=== PATIENT | female | born 1975 | race Caucasian/White ===

== ENCOUNTER → 2017-04-17 | Outpatient (CLI) | payer BC ==
[2017-04-17 16:36] LABS: Basophils # (A) 0.1 k/uL (0-0.2); Basophils % (A) 1 %; CH 30.4; CHCM 34.9; Eosinophils # (A) 0.2 k/uL (0-0.7); Eosinophils % (A) 3 %; HCT 40.8 % (34.0-46.0); HDW 2.79; Luc # (Auto) 0.17; Luc % (Auto) 3; Lymphocytes # (A) 1.9 k/uL (1.0-4.8); Lymphocytes % (A) 29 %; MCHC 34.3 g/dL (31.0-37.0); MCV 87.5 fL (80.0-100.0); Mean Platelet Volume 6.5; Monocytes # (A) 0.3 k/uL (0-1.0); Monocytes % (A) 5 %; Neutrophils # (A) 3.9 k/uL (1.3-7.7); Neutrophils % (A) 60 %; RBC 4.67 m/uL (3.80-5.40); RDW 12.8 % (11.5-15.5); WBC 6.5 k/uL (3.8-10.6); WBC (Perox) 6.19
== END | disposition home or self-care (01) ==
LOC: LABPAT 16:02
PROVIDERS: ATTEND Obstetrics & Gynecology
DX: Z01.812 Encounter for preprocedural laboratory examination (principal)
CPT/HCPCS: 36415; 85025

== ENCOUNTER 2017-04-24 07:57 | Day surgery (SDC) | payer SELFPAY ==
[2017-04-18 12:45] VITALS: BMI 32.3
--- NOTE | 2017-04-23 14:10 | P.HPOB ---
History of Present Illness H&P Date: 04/23/17 Chief Complaint: Menorrhagia with regular cycle, family planning This is a 41-year-old female 2 para 2 who presents for dilation and curettage with hysteroscopy and NovaSure endometrial ablation along with laparoscopic bilateral tubal ligation with fulguration for family planning and menorrhagia with regular cycle. She has been on control pills to control her heavy menses for some years now, however her blood pressure has been increasing in her family doctor has recommended that she stopped control pills. Her menses are occurring every 28 days and lasting 4 days that she has spotting for a week to week and a half after her menses. Her current partner has had a vasectomy. She would however like a tubal ligation for permanent sterilization. Pelvic ultrasound showed uterus measuring 10.2 x 2.5 x 5.8 cm. Endometrial stripe thickness was 0.5 cm. Both ovaries were normal. Obstetrical history: . History of 2 vaginal deliveries. Gynecologic history: No history of sexually transmitted diseases. She is currently using oral contraceptives and her partner has had a vasectomy. Social history: She is . She works as a hairdresser. Review of Systems Constitutional: Denies chills, Denies fever Ears, nose, mouth and throat: Denies headache, Denies sore throat Cardiovascular: Denies chest pain, Denies shortness of breath Respiratory: Denies cough Gastrointestinal: Denies abdominal pain, Denies diarrhea, Denies nausea, Denies vomiting Genitourinary: Reports menorrhagia Menstruation: Reports menses 8 or > days, Reports period heavy Musculoskeletal: Denies myalgias Integumentary: Denies pruritus, Denies rash Neurological: Denies numbness, Denies weakness Psychiatric: Reports anxiety, Reports difficulty concentrating Past Medical History Past Medical History: Asthma, Hypertension, Thyroid Disorder Additional Past Medical History / Comment(s): MIGRAINE HEADACHE History of Any Multi-Drug Resistant Organisms: None Reported Past Surgical History: Adenoidectomy, Tonsillectomy Past Anesthesia/Blood Transfusion Reactions: Motion Sickness, Postoperative Nausea & Vomiting (PONV) Past Psychological History: Anxiety Smoking Status: Never smoker Past Alcohol Use History: Occasional Past Drug Use History: None Reported - Past Family History Mother Family Medical History: No Reported History Medications and Allergies Home Medications Medication Instructions Recorded Confirmed Type Hydrochlorothiazide 12.5 mg PO DAILY 04/18/17 04/18/17 History Lisdexamfetamine Dimesylate 10 mg PO DAILY 04/18/17 04/18/17 History [Vyvanse] Thyroid,Pork [Munford Thyroid] 90 mg PO DAILY 04/18/17 04/18/17 History Allergies Allergy/AdvReac Type Severity Reaction Status Date / Time codeine Allergy COMBATIVE Verified 04/18/17 12:24 Exam Osteopathic Statement: *. No significant issues noted on an osteopathic structural exam other than those noted in the History and Physical/Consult. HEENT: Within normal limits Heart: Regular rate and rhythm Lungs: Clear to auscultation bilaterally Abdomen: Soft, nontender Pelvic exam: Uterus is anteverted, nontender, with no adnexal masses palpated. Extremities: Negative Homans Assessment and Plan (1) Menorrhagia with regular cycle Status: Acute Code(s): N92.0 - EXCESSIVE AND FREQUENT MENSTRUATION WITH REGULAR CYCLE SNOMED Code(s): 128598984 (2) Family planning Status: Acute Code(s): Z30.09 - ENCOUNTER FOR OT GENERAL CNSL AND ADVICE ON CONTRACEPTION SNOMED Code(s): 967717911 Plan: Proceed with dilation and curettage with hysteroscopy and NovaSure endometrial ablation along with laparoscopic bilateral tubal ligation. I have discussed the risks, benefits, and alternative therapies for the above- mentioned procedure and for both sedation/anesthesia as well as necessary blood products administration, if indicated, as they pertain to this patient. The patient has indicated her understanding and acceptance of the risks and procedures discussed.
[~2017-04-24 07:57] MED LIST: Pre Op ABX Message 1 EACH MISC MISCELLANE ONE
[2017-04-24] MEDS: LACTATED RINGERS 1,000 ML IV SCH ×2 (08:16→11:31)
[2017-04-24] MEDS ORDERED: LIDOCAINE 1% 20 ML VIAL (10MG/ML) FOR IV START INTRADERMA ONE (08:17)
[2017-04-24 08:20] LABS: Glucose,Whole Blood 100 mg/dL (75-99)
[2017-04-24] MEDS ORDERED: ONDANSETRON 4 MG/2 ML VIAL IVP ONE ×2 (08:33→12:47)
[2017-04-24] MEDS ORDERED: DEXAMETHASONE SOD PHOS (MDV) 100 MG/10 ML VIAL IVP ONE (08:33)
[2017-04-24] MEDS ORDERED: SCOPOLAMINE 1.5MG/72HR PATCH TRANSDERM ONE (08:34)
[2017-04-24] MEDS ORDERED: MIDAZOLAM 2 MG/2 ML VIAL ONE (08:46)
[2017-04-24] MEDS ORDERED: fentaNYL (PF) 50 MCG/ML 2 ML AMP ONE (08:46)
[2017-04-24] MEDS ORDERED: PROPOFOL 10 MG/ML 20 ML VIAL IV ONE (08:46)
[2017-04-24] MEDS ORDERED: LIDOCAINE 1% INJ 10MG/ML (20 ML MDV) ONE (08:46)
[2017-04-24] MEDS ORDERED: SUCCINYLCHOLINE CHLORIDE 100 MG/5 ML SYR IV ONE (08:46)
[2017-04-24] MEDS ORDERED: KETOROLAC 30 MG/ML 1 ML VIAL ONE (08:46)
[2017-04-24] MEDS ORDERED: BUPIVACAINE (PF) 0.25% 30 ML VIAL SQ ONE ×2 (09:21)
--- NOTE | 2017-04-24 09:35 | P.OP ---
Date of Procedure: 04/24/17 Preoperative Diagnosis: Menorrhagia with regular cycle, family-planning Postoperative Diagnosis: Same Procedure(s) Performed: Dilation and curettage with hysteroscopy and NovaSure endometrial ablation Laparoscopic bilateral tubal ligation via fulguration Anesthesia: KOSTA Surgeon: Yuliana Goddard Estimated Blood Loss (ml): 10 Pathology: other (Endometrial curettings) Condition: stable Disposition: same day Indications for Procedure: This is a 41-year-old female 2 para 2 who presents for dilation and curettage with hysteroscopy and NovaSure endometrial ablation along with laparoscopic bilateral tubal ligation with fulguration for family planning and menorrhagia with regular cycle. She has been on control pills to control her heavy menses for some years now, however her blood pressure has been increasing in her family doctor has recommended that she stopped control pills. Her menses are occurring every 28 days and lasting 4 days that she has spotting for a week to week and a half after her menses. Her current partner has had a vasectomy. She would however like a tubal ligation for permanent sterilization. Pelvic ultrasound showed uterus measuring 10.2 x 2.5 x 5.8 cm. Endometrial stripe thickness was 0.5 cm. Both ovaries were normal. Operative Findings: Uterus is anteverted, with no adnexal masses palpated. Cervix is sounded to 4 cm and uterus is sounded to 9 cm. Upon hysteroscopy, a dyssynchronous endometrial pattern is noted. A minimal amount of endometrial curettings are obtained. Upon laparoscopy, uterus tubes and ovaries appeared normal. There was what appeared to be some small amount of endometriosis over the bladder area. Appendix was visualized and appeared normal. Description of Procedure: The patient is taken to the operating room. She is placed in the dorsal lithotomy position after general anesthesia was given. She is prepped and draped in the normal sterile fashion. Bladder is drained with a catheter and then removed. Pelvic exam is performed under anesthesia. Uterus is found to be anteverted with no adnexal masses. She is placed in slight Trendelenburg position. A right angle retractor is used to visualize the cervix. The anterior lip of the cervix is grasped with a single-tooth tenaculum. Cervix is sounded to 4 cm. Uterus is sounded to 9 cm. Cervix is gently dilated with Merlos dilators until a hysteroscope could be passed. Hysteroscopy is performed using normal saline. The above noted findings are noted. Next a polyp forceps is introduced. And a minimal amount of tissue was obtained. Next medium-sized size sharp curette was placed. A minimal to moderate amount of endometrial curettings were obtained. Next NovaSure array was inserted into the endometrial cavity. Length was set at 5 cm and width was determined to be 4 cm. Next cavity assessment was completed and passed on the first try. Next NovaSure array was fired at 110 W for 81 seconds. Next the array was removed, inspected and then discarded. Next the hysteroscope was reinserted. Uniform charring was noted. Pictures were taken. Hysteroscope was removed. A kroner uterine manipulator was then inserted and the balloon was inflated. Single- tooth tenaculum was removed from the anterior lip of the cervix. Minimal bleeding was noted. Gloves are changed and attention is turned to the abdomen. The infraumbilical fold was grasped in transverse fashion with 2 Allis clamps. A small transverse incision was made with a scalpel. A hemostat was used to carry the incision down to the underlying layer of fascia. A towel clip was placed above the umbilicus for retraction. A 11 mm disposable bladeless trocar was then inserted into the peritoneal cavity under direct visualization. Once inside, pneumoperitoneum was achieved with CO2 gas. The insert was removed and the camera was placed. Intraperitoneal placement was confirmed. No bleeding was noted. Next the patient was placed in Trendelenburg position. A small stab incision was made suprapubically and a 5 mm disposable bladeless trocar was inserted into the peritoneal cavity under direct visualization. Once inside pelvic contents were inspected. Next a bipolar Kleppinger instrument was placed through the inferior trocar and the midportion of each tube was brought away from other structures and completely fulgurated on approximate 2-3 cm segment of each tube. Excellent hemostasis was noted. A picture was taken. There was noted to be questionable endometriosis implants over the bladder area. No other evidence of endometriosis was noted. Pneumoperitoneum was released after the inferior trocar was removed under direct visualization. The upper trocar was then removed. The fascial incision was closed with 0 Vicryl suture in interrupted [id number] stitch. The skin incisions were then closed with 4-0 Vicryl suture in a subcuticular fashion. Incision sites were injected with quarter percent Marcaine. Approximately 4 mL were used. Next the kroner uterine manipulator was removed. Minimal bleeding was noted. All sponge and needle counts are correct. The patient is then taken to recovery room in stable condition.
[2017-04-24 09:45] VITALS: TEMP 96.9
[2017-04-24] MEDS: HYDROmorphone 1 MG/ML 1 ML SYRINGE IVP ONE ×4 (09:49→10:24)
[2017-04-24 10:59] VITALS: PULSE 75
[2017-04-24 12:20] VITALS: BP 119/66; RESP 18
== END 2017-04-24 13:51 | disposition home or self-care (01) ==
LOC: OR 07:57
PROVIDERS: ATTEND Obstetrics & Gynecology
DX: N92.0 Excessive and frequent menstruation with regular cycle (principal); Z30.2 Encounter for sterilization; I10 Essential (primary) hypertension; E07.9 Disorder of thyroid, unspecified; J45.909 Unspecified asthma, uncomplicated; F41.9 Anxiety disorder, unspecified; Z88.5 Allergy status to narcotic agent; Z79.899 Other long term (current) drug therapy
CPT/HCPCS: 58563; 58670; 81025; 88305; J2250; J2405; J2001; J3010; J1885; J1170; J1100; J0330; J2704

== ENCOUNTER → 2018-03-11 | Outpatient (CLI) | payer BC ==
[2018-03-11 17:40] LABS: Basophils # (A) 0.1 k/uL (0-0.2); Basophils % (A) 1 %; Eosinophils # (A) 0.3 k/uL (0-0.7); Eosinophils % (A) 3 %; HCT 40.6 % (34.0-46.0); HGB 13.5 gm/dL (11.4-16.0); Lymphocytes # (A) 2.4 k/uL (1.0-4.8); Lymphocytes % (A) 28 %; MCH 29.4 pg (25.0-35.0); MCHC 33.1 g/dL (31.0-37.0); MCV 88.7 fL (80.0-100.0); Mean Platelet Volume 6.4; Monocytes # (A) 0.4 k/uL (0-1.0); Monocytes % (A) 4 %; Neutrophils # (A) 5.3 k/uL (1.3-7.7); Neutrophils % (A) 62 %; Platelet Count 278 k/uL (150-450); RBC 4.58 m/uL (3.80-5.40); WBC 8.4 k/uL (3.8-10.6)
== END | disposition home or self-care (01) ==
LOC: LABPAT 17:20
PROVIDERS: ATTEND Obstetrics & Gynecology
DX: Z01.812 Encounter for preprocedural laboratory examination (principal)
CPT/HCPCS: 36415; 85025

== ENCOUNTER → 2018-03-22 | Day surgery (SDC) | payer BC ==
[2018-03-15 15:45] VITALS: BMI 29.8
--- NOTE | 2018-03-21 19:25 | P.HPOB ---
History of Present Illness H&P Date: 03/21/18 Chief Complaint: Recurrent LGSIL, positive high risk HPV This is a [id number] female 2 para 2 who presents for loop electrocautery excision procedure with colposcopy secondary to recurrent low- grade squamous intraepithelial lesion and positive high risk HPV. Her last Pap smear was performed 12/07/2017 and revealed low-grade Scriba subjective epithelial lesion of the cervix with positive high risk HPV. 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 She was treated with cryotherapy in 2017. Since this is recurrent and she is still showing positive high risk HPV, she would like definitive surgical treatment to treat this problem. Obstetrical history: . History of 2 vaginal deliveries. Gynecologic history: She does have a history of a tubal ligation and NovaSure ablation. She has no other history of sexual transmitted diseases. Her current partner also has has a vasectomy. Social history: She is . She works as a hairdresser. Review of Systems Constitutional: Denies chills, Denies fever Eyes: denies blurred vision, denies pain Ears, nose, mouth and throat: Denies headache, Denies sore throat Cardiovascular: Denies chest pain, Denies shortness of breath Respiratory: Denies cough Gastrointestinal: Denies abdominal pain, Denies diarrhea, Denies nausea, Denies vomiting Genitourinary: Denies dysuria, Denies hematuria Menstruation: Reports amenorrhea Musculoskeletal: Denies myalgias Integumentary: Denies pruritus, Denies rash Neurological: Denies numbness, Denies weakness Psychiatric: Reports anxiety, Reports difficulty concentrating Endocrine: Denies fatigue, Denies weight change Past Medical History Past Medical History: Hyperlipidemia, Hypertension, Thyroid Disorder History of Any Multi-Drug Resistant Organisms: None Reported Past Surgical History: Adenoidectomy, Tonsillectomy, Tubal Ligation, Uterine Ablation Past Anesthesia/Blood Transfusion Reactions: Postoperative Nausea & Vomiting ( PONV) Past Psychological History: Anxiety Smoking Status: Never smoker Past Alcohol Use History: Occasional Past Drug Use History: None Reported - Past Family History Mother Family Medical History: No Reported History, Hyperlipidemia Medications and Allergies Home Medications Medication Instructions Recorded Confirmed Type Thyroid,Pork [Sebastian Thyroid] 90 mg PO DAILY 04/18/17 03/15/18 History Methylphenidate HCl [Ritalin] 10 mg PO DAILY PRN 03/15/18 03/15/18 History Allergies Allergy/AdvReac Type Severity Reaction Status Date / Time codeine Allergy COMBATIVE Verified 03/15/18 15:39 Exam Osteopathic Statement: *. No significant issues noted on an osteopathic structural exam other than those noted in the History and Physical/Consult. HEENT: Within normal limits Heart: Regular rate and rhythm Lungs: Clear to auscultation bilaterally Abdomen: Soft, nontender Pelvic exam: Uterus is anteverted, nontender, with no adnexal masses or tenderness noted. Extremities: Negative Homans Assessment and Plan (1) Low grade squamous intraepithelial lesion (LGSIL) Status: Acute Code(s): BIV3935 - SNOMED Code(s): 685322345 (2) Cervical high risk HPV (human papillomavirus) test positive Status: Acute Code(s): R87.810 - CERVICAL HIGH RISK HPV DNA TEST POSITIVE SNOMED Code(s): 175143873 Plan: Proceed with colposcopy with loop electrocautery excision procedure. I have discussed the risks, benefits, and alternative therapies for the above- mentioned procedure and for both sedation/anesthesia as well as necessary blood products administration, if indicated, as they pertain to this patient. The patient has indicated her understanding and acceptance of the risks and procedures discussed.
[~2018-03-22] MED LIST changes: +ACETIC ACID 15 DROPS/ML DROPS MISCELLANE ONE; +BUPIVACAIN-EPI 0.25%-1:200,000 30 ML VIAL SQ ONE; +DEXAMETHASONE SOD PHOSPHATE 10 MG/ML 1 ML VIAL IV ONE; +FERRIC SUBSULFATE (MONSELS) JAR TOPICAL ONE; +IODINE/POTASS IOD (LUGOLS) BTL TOPICAL ONE; +KETOROLAC 30 MG/ML 1 ML VIAL ONE; +LACTATED RINGERS 1,000 ML IV ONE; +LIDOCAINE 1% 20 ML VIAL (10MG/ML) FOR IV START INTRADERMA ONE; +LIDOCAINE 1% INJ 10MG/ML (20 ML MDV) ONE; +LIDOCAINE 1%-EPI 1:100,000 20 ML VIAL SQ ONE; +MIDAZOLAM 2 MG/2 ML VIAL ONE; +ONDANSETRON 4 MG/2 ML VIAL IVP ONE; +PROPOFOL 10 MG/ML 20 ML VIAL IV ONE; +fentaNYL (PF) 50 MCG/ML 2 ML AMP ONE
--- NOTE | 2018-03-22 08:01 | P.OP ---
Date of Procedure: 03/22/18 Preoperative Diagnosis: Recurrent low-grade intraepithelial lesion of the cervix Postoperative Diagnosis: Same Procedure(s) Performed: Colposcopy with loop electrocautery excision procedure Anesthesia: other (Mask general) Surgeon: Yuliana Goddard Estimated Blood Loss (ml): 10 Pathology: other (Ectocervix with 12:00 marked with a black suture and 6:00 marked with a white suture; separate piece is endocervix) Condition: stable Disposition: same day Indications for Procedure: This is a [id number] female 2 para 2 who presents for loop electrocautery excision procedure with colposcopy secondary to recurrent low- grade squamous intraepithelial lesion and positive high risk HPV. Her last Pap smear was performed 12/07/2017 and revealed low-grade Scriba subjective epithelial lesion of the cervix with positive high risk HPV. 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 She was treated with cryotherapy in 2016. Since this is recurrent and she is still showing positive high risk HPV, she would like definitive surgical treatment to treat this problem. Operative Findings: Cervix is swabbed with acetic acid and fine mosaicism was noted along the 12:00 border, between 12 and 3:00. The same areas noted to be Lugol white. Transition zone is seen entirely. Description of Procedure: The patient is taken to the operating room where she is placed in the dorsal lithotomy position. She is prepped and draped in the normal sterile fashion. Bladder is drained with a catheter. A coated bivalve speculum was placed in the patient's vagina. Colposcopy is performed using a blue light. Cervix is swabbed with 5% acetic acid. The above noted findings are made. Next the cervix is swabbed with Lugol solution. The above-noted findings are made. Next the cervix was circumferentially injected with a 50-50 mixture of cord or percent Marcaine and 1% lidocaine with epi. Approximately 8 mL were injected using a spinal needle. Next a large cutting loop was used with 35 W of cutting power to swipe from left to right along the upper border. This piece was labeled at the 12 o'clock position with a black suture. The large cutting loop was also used to swipe along the 6:00 border from left to right and this 6:00 border was marked with a white suture. Next a smaller loop was used to remove the endocervix. This was not labeled. A ball-tipped cautery was then used to cauterize the bed left behind. Excellent hemostasis was noted. Next Monsel solution was applied. All instruments are removed from the vagina. All sponge and needle counts are correct. The patient is then taken to recovery room in stable condition.
[2018-03-22 08:12] VITALS: TEMP 97.2
[2018-03-22 09:11] VITALS: RESP 16
[2018-03-22 09:33] VITALS: BP 127/69; PULSE 73
== END | disposition home or self-care (01) ==
LOC: OR 06:20
PROVIDERS: ATTEND Obstetrics & Gynecology
DX: D06.1 Carcinoma in situ of exocervix (principal); R87.612 Low grade squamous intraepithelial lesion on cytologic smear of cervix (LGSIL); A63.0 Anogenital (venereal) warts; E07.9 Disorder of thyroid, unspecified; Z79.890 Hormone replacement therapy; Z88.5 Allergy status to narcotic agent
CPT/HCPCS: 57522; 81025; 88305; 88307; J2250; J1100; J2405; J2001; J3010; J1885; J2704

== ENCOUNTER → 2020-03-29 | Outpatient (CLI) | payer BC ==
--- NOTE | 2020-03-29 08:46 | US ---
EXAMINATION TYPE: US pelvis complete transvag DATE OF EXAM: 03/29/2020 COMPARISON: US 04/06/2017 CLINICAL HISTORY: 44-year-old female R10.2 Pelvic Pain. Ablation a few years ago. Pelvic pain TECHNIQUE: Transabdominal sonographic images of the pelvis were acquired. Transvaginal sonographic i mages were medically necessary to better assess the following anatomy: Uterus Date of LMP: a few years ago FINDINGS: EXAM MEASUREMENTS: Uterus: 9.5 x 3.5 x 4.7 cm Endometrial Stripe: 0.2 cm Right Ovary: 2.6 x 1.5 x 1.7 cm Left Ovary: 2.4 x 2.1 x 1.2 cm 1. Uterus: Anteverted. Bulky and heterogeneous myometrium. Nabothian cysts visualized. 3 cystic ar eas are present in the uterus measuring up to 0.9 x 0.4 x 0.8 cm. One is centrally located along the lower uterine segment/body and 2 are present on either side of the fundus. 2. Endometrium: Difficult to to delineate compatible with history of patient's ablation. 3. Right Ovary: Cystic area visualized measuring 1.9 x 1.1 x 1.1 cm 4. Left Ovary: Follicle visualized 1.3 cm 5. Bilateral Adnexa: wnl 6. Posterior cul-de-sac: wnl IMPRESSION: 1. 3 cystic areas within the uterus, two in the region of either cornua and one along the uterine fun dus/body measuring up to 9 mm. Given pelvic pain and history of prior ablation, consider areas of foc al hematometra from the presence of residual endometrial tissue. 2. A dominant follicle or functional cyst within either ovary measuring 1.9 cm on the right and 1.3 c m on the left.
== END | disposition home or self-care (01) ==
LOC: RADUSWWP 07:43
PROVIDERS: ATTEND Obstetrics & Gynecology
DX: R10.2 Pelvic and perineal pain (principal)
CPT/HCPCS: 76830; 76856; 93976

== ENCOUNTER → 2022-07-27 | Outpatient (CLI) | payer BC ==
--- NOTE | 2022-07-27 08:09 | US ---
EXAMINATION TYPE: US thyroid st tissue head/neck DATE OF EXAM: 07/27/2022 COMPARISON: NONE CLINICAL HISTORY: R94.6 ABN THYROID FUNCTIONS RESULTS. GLAND SIZE: Right Lobe: 4.8 x 1.4 x 1.7 cm Overall Parenchyma: heterogenous Left Lobe: 4.0 x 1.2 x 1.2 cm Overall Parenchyma: heterogeneous Isthmus Thickness: 0.3 cm NODULES RIGHT: # of nodules measured on right: 0 LEFT: # of nodules measured on left: 0 ISTHMUS: # of nodules measured in the isthmus: 0 Bilateral neck scanned, no evidence of lymphadenopathy. IMPRESSION: Heterogenous thyroid gland without evidence for thyroid nodule. Correlate with serum markers for thyr oiditis.
== END | disposition home or self-care (01) ==
LOC: RADUSWWP 07:04
PROVIDERS: ATTEND Family Medicine
DX: E07.89 Other specified disorders of thyroid (principal); R94.6 Abnormal results of thyroid function studies
CPT/HCPCS: 76536

== ENCOUNTER → 2024-09-02 | Outpatient (CLI) | payer BC ==
[2024-09-02 15:04] VITALS: BP 133/92; PULSE 102; RESP 16; TEMP 98.6
--- NOTE | 2024-09-02 16:30 | P.HPOB ---
History of Present Illness H&P Date: 09/02/24 Chief Complaint: The patient is here for her routine gynecologic exam This is a 48-year-old G2, P2 with an LMP of 2017. The patient is here to establish with this office. She previously saw Dr. Goddard for her gynecologic care. She last saw her about 1-1/2 years ago. Her is status post vasectomy. She is status post endometrial ablation in 2017. She has been amenorrheic since then. She believes she is going through a menopausal change because of hot flashes and feeling hot at night. The symptoms have been for about the last year. She denies any recent vaginal bleeding. She states her PCP did a blood test that indicated she is not fully menopausal, but may be perimenopausal. Review of Systems The patient's weight has been stable over the last year. She denies respiratory, cardiac, or G.I. problems. Past Medical History Past Medical History: Asthma, Hyperlipidemia, Hypertension (Not requiring medication after weight loss), Thyroid Disorder Additional Past Medical History / Comment(s): Hypothyroidism. 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 She denies any other history of STDs. History of Any Multi-Drug Resistant Organisms: None Reported Past Surgical History: Adenoidectomy, Tonsillectomy, Tubal Ligation, Uterine Ablation Additional Past Surgical History / Comment(s): Endometrial ablation 2017. LEEP procedure of the cervix in 2018 for RAFAT-3. [place] teeth removed. Past Psychological History: ADD/ADHD Smoking Status: Never smoker Past Alcohol Use History: Occasional Past Drug Use History: None Reported Additional History: She has been since 2022 and this is her second marriage. She works as a hairdresser. - Past Family History Mother Family Medical History: Hyperlipidemia Additional Family Medical History / Comment(s): Maternal grandmother had thyroid issues. She denies family history of cancer of the breast, uterus, ovaries, or colon. Father Family Medical History: Diabetes Mellitus, Hyperlipidemia Additional Family Medical History / Comment(s): Type 2 diabetes. Medications and Allergies Home Medications Medication Instructions Recorded Confirmed Type Albuterol Sulfate/Budesonide 10.7 gm IH DIRECTED 09/02/24 09/02/24 History [Airsupra 90-80 Mcg Inhaler] Cholecalciferol (Vitamin D3) 1,250 mcg PO WEEKLY 09/02/24 09/02/24 History [Vitamin D3 (1250 Mcg = 50,000 Iu)] Levothyroxine Sodium [Synthroid] 150 mcg PO DIRECTED 09/02/24 09/02/24 History Levothyroxine Sodium [Synthroid] 175 mcg PO DIRECTED 09/02/24 09/02/24 History Multivitamin [Multivitamins Adult 1 each PO DAILY 09/02/24 09/02/24 History Gummies] Allergies Allergy/AdvReac Type Severity Reaction Status Date / Time codeine Allergy COMBATIVE Verified 09/02/24 14:48 Exam Vital Signs Temp Pulse Resp BP Pulse Ox 09/02/24 14:57 98.6 F 102 H 16 133/92 98 Intake and Output 09/02/24 09/02/24 09/02/24 06:59 14:59 22:59 Other: Weight 84.368 kg Height 5 feet 4 inches, weight 186 pounds, BMI 31.9. This is a well-developed well-nourished white female who is alert and oriented times 3 in no acute distress. HEENT: Within normal limits. NECK: Supple without mass or thyromegaly. CHEST AND LUNGS: Clear to auscultation. HEART: Regular rate and rhythm. BREASTS: Are without mass or discharge. AXILLARY EXAM: Negative for adenopathy. BACK: Negative for CVA tenderness. ABDOMEN: Soft, nontender, without palpable masses. PELVIC EXAM: Normal external genitalia. Cervix and vagina appear normal. There is no unusual discharge. There is no evidence of prolapse. The uterus is midposition, nongravid size and nontender. There are no palpable adnexal masses or tenderness. RECTAL EXAM: negative for mass or tenderness and is negative for occult blood. EXTREMITIES: Nontender. IMPRESSION: 1. 48-year-old perimenopausal female whose is status post vasectomy, with normal gynecologic exam. 2. Amenorrhea following an endometrial ablation in 2017. 3. History of LEEP procedure of the cervix for RAFAT-[address] Goddard's records, she has had normal Pap smears since then (2018, 2019, and 2020). Pap smear cotest on 10/19/2021 and March 01, 2023 were both negative. PLAN: 1. Pap smear cotest was performed. If this is negative, I have recommended that we space Pap smears out. I do not feel that they need to be done yearly since we have had several negative Pap smears in a row. 2. Self breast awareness was discussed with the patient. We have also discussed symptoms associated with inflammatory breast cancer. 3. Screening mammogram will was done in July 2024 at [facility] and was normal per the patient. She will repeat this after 1 year. We have discussed how this can be done at [facility] at the time of her next annual exam, or she can continue to do them at [facility]. 4. Osteoporosis prevention was discussed. I have stressed the importance of adequate calcium, vitamin D and regular exercise. Recommended amounts of calcium and vitamin D were also discussed. 5. I recommended that she discuss colorectal cancer screening with Dr. Johns based on her age. 6. She was advised to return in one year for her annual well woman exam.
== END ==
LOC: WWCWWP 14:27
PROVIDERS: ATTEND Obstetrics & Gynecology
DX: Z01.419 Encounter for gynecological examination (general) (routine) without abnormal findings (principal); N91.2 Amenorrhea, unspecified; Z78.0 Asymptomatic menopausal state; Z98.51 Tubal ligation status; Z90.89 Acquired absence of other organs; Z98.890 Other specified postprocedural states; Z88.5 Allergy status to narcotic agent